=== PATIENT | female | born 1935 | race African-American/Black ===

== ENCOUNTER → 2020-12-05 | Outpatient (CLI) | payer MEDICARE, OTHER ==
[~2020-12-05] MED LIST: ASPI-630 PO; BETA15CR4 TP; FLUT9.9S NS; LACT20SO PO; LEVO75TA90 PO; LISI20TA18 PO; LORA10TA3 PO; METF500T16 PO; SIMV20TA18 PO
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
== END ==
LOC: PNCL 10:21
PROVIDERS: ATTEND Anesthesiology
DX: M54.5 Low back pain (principal); M25.572 Pain in left ankle and joints of left foot; I10 Essential (primary) hypertension; M19.90 Unspecified osteoarthritis, unspecified site; Z90.710 Acquired absence of both cervix and uterus
CPT/HCPCS: 99214; G0463

== ENCOUNTER → 2020-12-27 | Outpatient (CLI) | payer MEDICARE, OTHER ==
--- NOTE | 2020-12-27 12:29 | PDOC ---
Progress Note - Pain Clinic Date of Service: DOS: DATE: 12/27/20 TIME: 12:26 Diagnosis: Dx: Lumbar radiculopathy with lumbar degenerative disc disease Left ankle pain History or Present Illness: HPI: 85-year-old female returns for follow-up status post initial valuation and Medrol Dosepak patient reports did very well despite a 50% improvement at least in the low back and left lower extremity and the left ankle is feeling much better after the medication. Patient reports some tingling and shooting in the left leg in the low back but much better than it was patient reports has been increasing activity with greater ease and comfort walking greater distances doing household activities with greater ease as well and sleeping better at night for the most part patient reports is beginning to awaken her from sleep again with the pain in the ankle and the left leg patient reports her pain is 8 on scale 10 is worse over the past week 6 on average 3 at its least and is a 3 today. Patient reports no new motor or sensory deficits no bowel or bladder incontinence but is difficult to walk more than about 15 minutes as her left foot is painful as well. Physical Exam: VS: Blood pressure is 136/69 pulse 75 respirations 18 temperature 98.1 F weight 164 pounds PE: PHYSICAL EXAMINATION: GENERAL: The patient is awake, alert, oriented, appropriate, very pleasant in demeanor, patient accompanied by her son. HEENT: Shows normocephalic, atraumatic. Extraocular movements are intact and symmetrical. Oral cavity: Mucous membranes moist and pink. NECK: Shows anterior throat supple without palpable lymphadenopathy noted. Swallow reflex symmetrical. CHEST: Shows normal on inspection. Breath sounds are clear bilaterally, no rales or. HEART: Shows S1, S2 clear. No murmurs auscultated. ABDOMEN: Soft, nontender, nondistended, obese. No palpable organomegaly is noted. BACK: Shows spine grossly in the midline. Normal-appearing cervical lordotic curvature. There is slightly increased thoracic kyphosis, some minor flattening of the lumbar lordotic curvature. Lumbar paraspinous muscles show symmetrical on inspection, on palpation shows some moderate tenderness diffusely throughout the upper, middle and lower distribution of the paraspinous muscles without specific trigger points, without radiation of pain. The patient has good rotational motion of the lumbar spine, both laterally as well as extension and flexion without significant difficulty. EXTREMITIES: Lower extremities show deep tendon reflexes 1+ in the patellar and tendo calcaneus tendons. Motor exam is 5 on a scale of 5 with right dorsiflexion, extension, quadriceps and hamstring flexion and 4/5 on the left. Peripheral pulses are 1+ posterior tibial. No peripheral edema is noted bilaterally. Lower extremities are warm and dry to touch, equal in color and appearance. SKIN: Shows warm and dry, good turgor. No edema. No sores, rashes or bruising throughout. Procedure: Procedure: Options discussed with the patient. Patient's old chart was reviewed as her current medication list updated and current review of systems updated today as well. We will hold on any injections at this point as patient is feeling quite better would like to give this more time and increase activity as tolerated. Patient was encouraged to do stretching and strength exercises and follow-up if the pain returns or becomes worse or changes. Patient understands and agrees. Patient will follow up with us on an as-needed basis. Medication Injected: Med Injected: None Condition at Discharge: Condition at Discharge: Condition at discharge is stable. RHONDA MCNALLY MD Dec 27, 2020 12:29
== END | disposition home or self-care (01) ==
LOC: PNCL 11:24
PROVIDERS: ATTEND Anesthesiology
DX: M51.16 Intervertebral disc disorders with radiculopathy, lumbar region (principal); M25.572 Pain in left ankle and joints of left foot; Z79.82 Long term (current) use of aspirin; Z79.84 Long term (current) use of oral hypoglycemic drugs; Z79.899 Other long term (current) drug therapy; Z88.0 Allergy status to penicillin
CPT/HCPCS: 99212; G0463

== ENCOUNTER → 2021-05-27 | Outpatient (CLI) | payer MEDICARE, OTHER ==
--- NOTE | 2021-05-27 13:51 | PDOC ---
Progress Note - Pain Clinic Date of Service: DOS: DATE: 05/27/21 TIME: 13:46 Diagnosis: Dx: Lumbar radiculopathy with lumbar degenerative disease Left ankle pain History or Present Illness: HPI: 86-year-old female returns last seen December 27, 2020 patient did very well after Medrol Dosepak which decrease the pain that she was having in her low back and left lower extremity fairly significantly by about 50 to 75% patient reports her pain is returning now over the past month or so not result of any specific injury or accident that she is aware of but is increasing pain in the low back and into the left lower extremity posterior gluteus posterior lateral thigh lateral anterior thigh anterior medial thigh and the calf as well. Patient also reports pain in the left shoulder which is new worse with activity lifting items worse at night and with sleeping on her left side patient reports worse with reaching overhead with the left arm and repetitive motions and specially doing chores at the kitchen counter with cutting or preparing foods she notices in her left shoulder as well with some radiation into the bicep region but not further. Patient rates her pain as a 4 on a scale of 10 at all times average worst and least is a 4 today patient scribes as tingling aching the low back and leg shooting in the leg tingling in the left shoulder and arm which is aching and dull also on and off in intensity. Patient reports most nights she can sleep on her right side and generally does not awaken her from sleep. Patient reports no deficits but significant fatigability with the left upper extremity as well as the left leg. Patient is walking with a cane in her right hand. Physical Exam: VS: Blood pressure is 141/75 pulse 90 respirations 18 temperature is 97.9 F height is 5 foot 2 and half inches weight is 159 pounds. PE: PHYSICAL EXAMINATION: GENERAL: The patient is awake, alert, oriented, appropriate, very pleasant in demeanor, patient accompanied by her son. HEENT: Shows normocephalic, atraumatic. Extraocular movements are intact and symmetrical. Oral cavity: Mucous membranes moist and pink. NECK: Shows anterior throat supple without palpable lymphadenopathy noted. Swallow reflex symmetrical. CHEST: Shows normal on inspection. Breath sounds are clear bilaterally, distant but no rales or rhonchi auscultated. HEART: Shows S1, S2 clear. No murmurs auscultated. ABDOMEN: Soft, nontender, nondistended. No palpable organomegaly is noted. BACK: Shows spine grossly in the midline. Normal-appearing cervical lordotic curvature. Cervical paraspinous muscles show symmetrical inspection, palpation some moderate tenderness diffusely in the middle and lower distribution the paraspinous muscles bilaterally but only diffusely without significant radiation or trigger points. Patient shows good rotation motion cervical spine both laterally as well as extension flexion without significant limitation. There is moderately increased thoracic kyphosis, some mild flattening of the lumbar lordotic curvature. Lumbar paraspinous muscles show symmetrical on inspection, on palpation shows some moderate tenderness diffusely throughout the upper, middle and lower distribution of the paraspinous muscles without specific trigger points, without radiation of pain. The patient has good rotational motion of the lumbar spine, both laterally as well as extension and flexion without significant difficulty. No tenderness over the spinous processes, sacrum or sacroiliac regions. EXTREMITIES: Lower extremities show deep tendon reflexes 1+ in the patellar and tendo calcaneus tendons. Motor exam is 5 on a scale of 5 with right dorsiflexion, extension, quadriceps and hamstring flexion and 4/5 on the left. Peripheral pulses are 1+ posterior tibial. No peripheral edema is noted bilaterally. Lower extremities are warm and dry to touch, equal in color and appearance. Upper extremity show deep tendon reflexes 2+ in the bicep and tricep tendons, motor exam is 4-5 with extrusion die coordinator strength bicep and tricep flexion and symmetrical. Peripheral pulses are 2+ radial. Shoulder shrug is strong and intact without loss of strength on resistance. Patient's right shoulder shows some moderate tenderness with abduction past 90 degrees but performs this fully and with out loss of strength on resistance. Left side shows normal rotation motion without loss of strength as well. SKIN: Shows warm and dry, good turgor. No edema. No sores, rashes or bruising throughout. Procedure: Procedure: Options were discussed with patient. Patient's old chart was reviewed as her current medication regimen updated current review of systems updated today as well. We will describe Medrol Dosepak, patient is given instructions as well as side effects beware with the medication. Patient will follow up once the Medrol Dosepak is completed. Discussed possibility of interventional techniques in the future and patient like to consider this however she did so well with the Medrol Dosepak last fall we will try this first and reevaluate once it is completed. Patient agrees and understands. Medication Injected: Med Injected: None Condition at Discharge: Condition at Discharge: Condition at discharge is stable. RHONDA MCNALLY MD May 27, 2021 13:51
== END | disposition home or self-care (01) ==
LOC: PNCL 13:09
PROVIDERS: ATTEND Anesthesiology
DX: M51.16 Intervertebral disc disorders with radiculopathy, lumbar region (principal); M25.572 Pain in left ankle and joints of left foot; Z79.82 Long term (current) use of aspirin; Z79.84 Long term (current) use of oral hypoglycemic drugs; Z88.0 Allergy status to penicillin
CPT/HCPCS: 99212; G0463